=== PATIENT | female | born 1970 | race Caucasian/White ===

== ENCOUNTER 2018-07-23 12:37 | Emergency (ER) | payer BC, OTHER ==
[2018-07-23] MEDS ORDERED: Sodium Chloride 0.9% 10 ML Syringe FLUSH PRN (12:47)
[2018-07-23] MEDS ORDERED: Sodium Chloride 0.9% 2.5 ML Syringe FLUSH PRN (12:47)
--- NOTE | 2018-07-23 13:00 | EDM.PDOC ---
ED HPI GENERAL MEDICAL PROBLEM - General Chief Complaint: Neuro Symptoms/Deficits Stated Complaint: WEAKNESS/POSS. STROKE Time Seen by Provider: 07/23/18 12:47 Source of Information: Reports: Patient History Limitations: Reports: No Limitations - History of Present Illness INITIAL COMMENTS - FREE TEXT/NARRATIVE: History of present illness: []Patient was brought back to the ED after a stroke old was called. Patient started having severe weakness at noon yesterday and fell with loss of consciousness for unknown amount of time. She was unable to get back up and had to crawl for help. Patient's had severe weakness that continues today. Patient states she hasn't been feeling well for over a week but has no specific symptoms she denies cough, headache or pain with urination. She came in for evaluation of a possible stroke. Patient states she has had multiple TIAs in the past that felt similar to this. She denies any fevers, chills, nausea, vomiting or diarrhea. The daughter who brought the patient into the ED took me aside and wanted it noted that she has a history of pancreatitis and is an alcoholic. Review of systems: As per history of present illness and below otherwise all systems reviewed and negative. Past medical history: As per history of present illness and as reviewed below otherwise noncontributory. Surgical history: As per history of present illness and as reviewed below otherwise noncontributory. Social history: No reported history of drug or alcohol abuse. Family history: As per history of present illness and as reviewed below otherwise noncontributory. Physical exam: General: Well developed, well nourished in NAD HEENT: Atraumatic, normocephalic, pupils reactive, negative for conjunctival pallor or scleral icterus, mucous membranes moist, throat clear, neck supple, no rigidity, nontender, trachea midline. Positive maxillary sinus tenderness bilaterally to palpation Lungs: Clear to auscultation, breath sounds equal bilaterally, chest nontender. Heart: S1S2, regular, negative for clicks, rubs, or JVD. Abdomen: NABS, Soft, nondistended, nontender. Negative for masses or hepatosplenomegaly. Negative for costovertebral tenderness. Pelvis: Stable nontender. Genitourinary: Deferred. Rectal: Deferred. Extremities: Atraumatic, negative for cords or calf pain. Neurovascular unremarkable. Neuro: Awake, alert, oriented. Cranial nerves II through XII unremarkable. Cerebellum unremarkable. Motor and sensory unremarkable throughout. Exam nonfocal. Skin:warm and dry Diagnostics: CT head negative, CBC, chemistry, troponin, TSH, alcohol, lipase, chest x-ray, UA Therapeutics: IV hydration, Levaquin IV ED Course: Consulted [facility] at 14:00 Dr. Cobb sets patient for admission, Impression: Urosepsis, positive troponin, generalized weakness Prescriptions: None Plan: Transfer to [facility] for further treatment evaluation. Definitive disposition and diagnosis as appropriate pending reevaluation and review of above. - Related Data Allergies Allergy/AdvReac Type Severity Reaction Status Date / Time Penicillins Allergy Rash Verified 07/23/18 14:42 Home Meds: Home Meds . [No Known Home Meds] 07/23/18 [History] ED ROS GENERAL - Review of Systems Review Of Systems: ROS reveals no pertinent complaints other than HPI. ED EXAM, NEURO - Physical Exam Exam: See Below (See history of present illness) Course - Vital Signs Last Recorded V/S: Last Vital Signs Temp 98.6 F 07/23/18 13:15 Pulse 86 07/23/18 14:13 Resp 18 07/23/18 14:13 BP 90/56 L 07/23/18 14:13 Pulse Ox 100 07/23/18 13:15 - Orders/Labs/Meds Orders: Active Orders 24 hr Category Date Time Status Assess Neurological Status [RC] ASDIRECTED Care 07/23/18 12:47 Active Bedrest [RC] ASDIRECTED Care 07/23/18 12:47 Active Cardiac Monitoring [RC] . DIRECTED Care 07/23/18 12:47 Active EKG Documentation Completion [RC] STAT Care 07/23/18 12:47 Active Height and Weight [RC] UPON Care 07/23/18 12:47 Active Initiate Acute Stroke Protocol [RC] STAT Care 07/23/18 12:47 Active NIH Stroke Scale [RC] ASDIRECTED Care 07/23/18 12:47 Active Nursing Bedside Swallow Screen [RC] ASDIRECTED Care 07/23/18 12:47 Active Oxygen Therapy [RC] ASDIRECTED Care 07/23/18 12:47 Active Stroke Education, General [RC] Click to Edit Care 07/23/18 12:47 Active Vital Signs [RC] Q15M Care 07/23/18 12:47 Active Head wo Cont [CT] Stat Exams 07/23/18 12:47 Taken CULTURE BLOOD [BC] Stat Lab 07/23/18 13:52 Received CULTURE BLOOD [BC] Stat Lab 07/23/18 14:06 Received CULTURE URINE [RM] Routine Lab 07/23/18 14:18 Received Levofloxacin/Dextrose 5%-Water [Levaquin in D5W 500 MG/ Med 07/23/18 14:29 Active 100 ML] 500 mg Premix Bag 1 bag IV ONETIME Sodium Chloride 0.9% [Saline Flush] Med 07/23/18 12:47 Active 10 ml FLUSH ASDIRECTED PRN Sodium Chloride 0.9% [Saline Flush] Med 07/23/18 12:47 Active 2.5 ml FLUSH ASDIRECTED PRN Blood Culture x2 Reflex Set [OM.PC] Stat Oth 07/23/18 13:43 Ordered Peripheral IV Insertion Adult [OM.PC] Stat Oth 07/23/18 12:47 Ordered Peripheral IV Insertion Adult [OM.PC] Stat Oth 07/23/18 12:47 Ordered Medication Orders Levofloxacin/Dextrose 500 mg/ (Premix) 100 mls @ 100 mls/hr IV ONETIME ONE Stop: 07/23/18 15:28 Last Admin: 07/23/18 14:59 Dose: 100 mls/hr Sodium Chloride (Saline Flush) 10 ml FLUSH ASDIRECTED PRN PRN Reason: Keep Vein Open Last Admin: 07/23/18 13:06 Dose: 10 ml Sodium Chloride (Saline Flush) 2.5 ml FLUSH ASDIRECTED PRN PRN Reason: Keep Vein Open Last Admin: 07/23/18 13:06 Dose: 2.5 ml Labs: Laboratory Tests 07/23/18 07/23/18 07/23/18 Range/Units 13:05 13:05 13:05 WBC 29.55 H (4.0-11.0) K/uL RBC 3.93 L (4.30-5.90) M/uL Hgb 12.5 (12.0-16.0) g/dL Hct 35.6 L (36.0-46.0) % MCV 90.6 (80.0-98.0) fL MCH 31.8 (27.0-32.0) pg MCHC 35.1 (31.0-37.0) g/dL RDW Std Deviation 56.7 (28.0-62.0) fl RDW Coeff of Dez 17 H (11.0-15.0) % Plt Count 69 L (150-400) K/uL MPV 11.40 (7.40-12.00) fL Add Manual Diff YES Neutrophils % (Manual) 71 (48.0-80.0) % Band Neutrophils % 23 % Lymphocytes % (Manual) 4 L (16.0-40.0) % Monocytes % (Manual) 1 (0.0-15.0) % Metamyelocytes % 1 % Nucleated RBC % 0.0 /100WBC Absolute Seg Neuts 21.0 H (1.4-5.7) Band Neutrophils # 6.8 Lymphocytes # (Manual) 1.2 (0.6-2.4) Monocytes # (Manual) 0.3 (0.0-0.8) Absolute Metamyelocyte 0.3 Nucleated RBCs # 0 K/uL INR 1.25 APTT 38.2 H (18.6-31.3) SEC Lactate (0.20-2.00) mmol/L Sodium 135 L (136-145) mmol/L Potassium 3.5 (3.5-5.1) mmol/L Chloride 104 (98-107) mmol/L Carbon Dioxide 22.6 (21.0-32.0) mmol/L BUN 19 H (7.0-18.0) mg/dL Creatinine 1.1 H (0.6-1.0) mg/dL Est Cr Clr Drug Dosing TNP Estimated GFR (MDRD) 53.2 ml/min Glucose 106 (74-106) mg/dL Calcium 8.1 L (8.5-10.1) mg/dL Total Bilirubin 0.5 (0.2-1.0) mg/dL AST 83 H (15-37) IU/L ALT 49 (14-63) IU/L Alkaline Phosphatase 82 (46-116) U/L Troponin I 0.136 H* (0.000-0.056) ng/mL Total Protein 5.4 L (6.4-8.2) g/dL Albumin 1.8 L (3.4-5.0) g/dL Globulin 3.6 (2.6-4.0) g/dL Albumin/Globulin Ratio 0.5 L (0.9-1.6) Lipase (73-393) U/L TSH 3rd Generation 0.51 (0.36-3.74) uIU/mL Urine Color Urine Appearance Urine pH (5.0-8.0) Ur Specific [place] (1.001-1.035) Urine Protein (NEGATIVE) mg/dL Urine Glucose (UA) (NEGATIVE) mg/dL Urine Ketones (NEGATIVE) mg/dL Urine Occult Blood (NEGATIVE) Urine Nitrite (NEGATIVE) Urine Bilirubin (NEGATIVE) Urine Urobilinogen (<2.0) EU/dL Ur Leukocyte Esterase (NEGATIVE) Urine RBC (0-2/HPF) Urine WBC (0-5/HPF) Ur Epithelial Cells (NONE-FEW) Urine Bacteria (NEGATIVE) Ethyl Alcohol mg/dL 07/23/18 07/23/18 07/23/18 Range/Units 13:05 14:06 14:18 WBC (4.0-11.0) K/uL RBC (4.30-5.90) M/uL Hgb (12.0-16.0) g/dL Hct (36.0-46.0) % MCV (80.0-98.0) fL MCH (27.0-32.0) pg MCHC (31.0-37.0) g/dL RDW Std Deviation (28.0-62.0) fl RDW Coeff of Dez (11.0-15.0) % Plt Count (150-400) K/uL MPV (7.40-12.00) fL Add Manual Diff Neutrophils % (Manual) (48.0-80.0) % Band Neutrophils % % Lymphocytes % (Manual) (16.0-40.0) % Monocytes % (Manual) (0.0-15.0) % Metamyelocytes % % Nucleated RBC % /100WBC Absolute Seg Neuts (1.4-5.7) Band Neutrophils # Lymphocytes # (Manual) (0.6-2.4) Monocytes # (Manual) (0.0-0.8) Absolute Metamyelocyte Nucleated RBCs # K/uL INR APTT (18.6-31.3) SEC Lactate 1.9 (0.20-2.00) mmol/L Sodium (136-145) mmol/L Potassium (3.5-5.1) mmol/L Chloride (98-107) mmol/L Carbon Dioxide (21.0-32.0) mmol/L BUN (7.0-18.0) mg/dL Creatinine (0.6-1.0) mg/dL Est Cr Clr Drug Dosing Estimated GFR (MDRD) ml/min Glucose (74-106) mg/dL Calcium (8.5-10.1) mg/dL Total Bilirubin (0.2-1.0) mg/dL AST (15-37) IU/L ALT (14-63) IU/L Alkaline Phosphatase (46-116) U/L Troponin I (0.000-0.056) ng/mL Total Protein (6.4-8.2) g/dL Albumin (3.4-5.0) g/dL Globulin (2.6-4.0) g/dL Albumin/Globulin Ratio (0.9-1.6) Lipase 72 L (73-393) U/L TSH 3rd Generation (0.36-3.74) uIU/mL Urine Color YELLOW Urine Appearance CLOUDY Urine pH 6.0 (5.0-8.0) Ur Specific [place] 1.020 (1.001-1.035) Urine Protein NEGATIVE (NEGATIVE) mg/dL Urine Glucose (UA) NEGATIVE (NEGATIVE) mg/dL Urine Ketones NEGATIVE (NEGATIVE) mg/dL Urine Occult Blood SMALL H (NEGATIVE) Urine Nitrite POSITIVE H (NEGATIVE) Urine Bilirubin NEGATIVE (NEGATIVE) Urine Urobilinogen 1.0 (<2.0) EU/dL Ur Leukocyte Esterase MODERATE H (NEGATIVE) Urine RBC 1-3 (0-2/HPF) Urine WBC 40-50 (0-5/HPF) Ur Epithelial Cells MODERATE (NONE-FEW) Urine Bacteria 3+ H (NEGATIVE) Ethyl Alcohol < 3.0 mg/dL Meds: Medications Generic Name Dose Route Start Last Admin Trade Name Freq PRN Reason Stop Dose Admin Levofloxacin/Dextrose 500 mg/ 100 mls @ 100 mls/hr 07/23/18 14:29 07/23/18 14 :59 Premix IV 07/23/18 15:28 100 mls/hr ONETIME ONE Administration Sodium Chloride 10 ml 07/23/18 12:47 07/23/18 13:06 Saline Flush FLUSH 10 ml ASDIRECTED PRN Administration Keep Vein Open Sodium Chloride 2.5 ml 07/23/18 12:47 07/23/18 13:06 Saline Flush FLUSH 2.5 ml ASDIRECTED PRN Administration Keep Vein Open Discontinued Medications Generic Name Dose Route Start Last Admin Trade Name Freq PRN Reason Stop Dose Admin Sodium Chloride 500 mls @ 999 mls/hr 07/23/18 13:23 07/23/18 13:28 Normal Saline IV 07/23/18 13:53 999 mls/hr .BOLUS ONE Administration Sodium Chloride 1,000 mls @ 999 mls/hr 07/23/18 13:44 07/23/18 14:15 Normal Saline IV 07/23/18 14:44 999 mls/hr .Bolus ONE Administration Departure - Departure Time of Disposition: 15:08 Disposition: DC/Tfer to Acute Hospital 02 Condition: Fair Clinical Impression: Elevated troponin, Thrombocytopenia, Generalized weakness Leukocytosis Qualifiers: Leukocytosis type: unspecified Qualified Code(s): D72.829 - Elevated white blood cell count, unspecified - Discharge Information *PRESCRIPTION DRUG MONITORING PROGRAM REVIEWED*: No *COPY OF PRESCRIPTION DRUG MONITORING REPORT IN PATIENT LUNA: No Referrals: PCP,Not In Area [Primary Care Provider] - Forms: ED Department Discharge - My Orders Last 24 Hours: My Active Orders 07/23/18 12:47 Assess Neurological Status [RC] ASDIRECTED Bedrest [RC] ASDIRECTED Cardiac Monitoring [RC] . DIRECTED EKG Documentation Completion [RC] STAT Height and Weight [RC] UPON Initiate Acute Stroke Protocol [RC] STAT NIH Stroke Scale [RC] ASDIRECTED Nursing Bedside Swallow Screen [RC] ASDIRECTED Oxygen Therapy [RC] ASDIRECTED Stroke Education, General [RC] Click to Edit Vital Signs [RC] Q15M Head wo Cont [CT] Stat Sodium Chloride 0.9% [Saline Flush] 10 ml FLUSH ASDIRECTED PRN Sodium Chloride 0.9% [Saline Flush] 2.5 ml FLUSH ASDIRECTED PRN Peripheral IV Insertion Adult [OM.PC] Stat Peripheral IV Insertion Adult [OM.PC] Stat 07/23/18 13:43 Blood Culture x2 Reflex Set [OM.PC] Stat 07/23/18 13:52 CULTURE BLOOD [BC] Stat 07/23/18 14:06 CULTURE BLOOD [BC] Stat 07/23/18 14:18 CULTURE URINE [RM] Routine 07/23/18 14:29 Levofloxacin/Dextrose 5%-Water [Levaquin in D5W 500 MG/100 ML] 500 mg Premix Bag 1 bag IV ONETIME - Assessment/Plan Last 24 Hours: My Active Orders 07/23/18 12:47 Assess Neurological Status [RC] ASDIRECTED Bedrest [RC] ASDIRECTED Cardiac Monitoring [RC] . DIRECTED EKG Documentation Completion [RC] STAT Height and Weight [RC] UPON Initiate Acute Stroke Protocol [RC] STAT NIH Stroke Scale [RC] ASDIRECTED Nursing Bedside Swallow Screen [RC] ASDIRECTED Oxygen Therapy [RC] ASDIRECTED Stroke Education, General [RC] Click to Edit Vital Signs [RC] Q15M Head wo Cont [CT] Stat Sodium Chloride 0.9% [Saline Flush] 10 ml FLUSH ASDIRECTED PRN Sodium Chloride 0.9% [Saline Flush] 2.5 ml FLUSH ASDIRECTED PRN Peripheral IV Insertion Adult [OM.PC] Stat Peripheral IV Insertion Adult [OM.PC] Stat 07/23/18 13:43 Blood Culture x2 Reflex Set [OM.PC] Stat 07/23/18 13:52 CULTURE BLOOD [BC] Stat 07/23/18 14:06 CULTURE BLOOD [BC] Stat 07/23/18 14:18 CULTURE URINE [RM] Routine 07/23/18 14:29 Levofloxacin/Dextrose 5%-Water [Levaquin in D5W 500 MG/100 ML] 500 mg Premix Bag 1 bag IV ONETIME
[2018-07-23] MEDS ORDERED: Sodium Chloride 0.9% 500 ML IV ONE (13:23)
[2018-07-23] MEDS ORDERED: Sodium Chloride 0.9% 1,000 ML IV ONE (13:44)
[2018-07-23 13:45] LABS: CHLORIDE,CL 104 mmol/L (98-107); SODIUM,NA 135 mmol/L (136-145)
[2018-07-23] MEDS ORDERED: Levofloxacin/Dextrose 5%-Water 500 MG in Premix Bag 1 BAG IV ONE (14:29)
--- NOTE | 2018-07-23 14:36 | CR ---
EXAMINATION: Portable chest radiograph. HISTORY: Shortness of breath. FINDINGS: The trachea is midline. The cardiomediastinal silhouette is within normal limits. No pulmonary infiltrates, effusions or pneumothorax. Osseous structures appear unremarkable. IMPRESSION: No acute cardiopulmonary process.
--- NOTE | 2018-07-24 10:53 | CT ---
EXAM DATE: 07/23/18 PATIENT'S AGE: 48 Patient: ZOHRA LOYD Facility: [place], [place] Site . Site : [id number] Study: CT Head STROKE PROTOCOL wo cont [id number] 12:56:31 PM Ordering Physician: Juwan Enriquez Final Report: INDICATION: Weakness, history of TIA TECHNIQUE: CT head without contrast. COMPARISON: None FINDINGS: CSF spaces: Within normal limits for age. Brain parenchyma: The burciaga-white differentiation is normal. No sign of mass, hemorrhage, or midline shift. Encephalomalacia within the medial left occipital lobe from remote insult. Skull base and calvarium: The visualized paranasal sinuses and mastoid air cells demonstrate no acute or significant findings. The visualized orbits are grossly unremarkable. No skull fractures. IMPRESSION: No acute intracranial abnormality. Please note that all CT scans at this facility use dose modulation, iterative reconstruction, and/or weight-based dosing when appropriate to reduce radiation dose to as low as reasonably achievable. Dictated by Zohra Gordillo MD @ Jul 23 2018 1:03PM (Electronic Signature) Report Signed by Proxy. [facility] HOSPITALWandy
== END 2018-07-23 15:21 ==
LOC: MW.ED 12:37
DX: R53.1 Weakness (principal); D69.6 Thrombocytopenia, unspecified; D72.829 Elevated white blood cell count, unspecified; F17.210 Nicotine dependence, cigarettes, uncomplicated; R79.89 Other specified abnormal findings of blood chemistry; Z90.89 Acquired absence of other organs; Z90.49 Acquired absence of other specified parts of digestive tract; Z98.84 Bariatric surgery status
CPT/HCPCS: 70450; 71045; 80053; 81001; 83605; 83690; 84443; 84484; 85025; 85610; 85730; 87040; 87086; 87088; 87186; 93005; 96361; 96365; 99285; G0480; J1956; J7040

== ENCOUNTER 2019-07-18 10:28 | Inpatient (IN) | payer BC ==
[2019-07-18] MEDS ORDERED: LORazepam 2 MG/ML SDV IVPUSH ONE (11:32)
--- NOTE | 2019-07-18 12:31 | CR ---
Chest: Portable view of the chest was obtained. Comparison: Prior chest x-ray of 07/23/18. Heart size is normal. Tortuous thoracic aorta is seen. Lungs are clear with no acute parenchymal change. Bony structures are grossly intact. Chronic pleural thickening is noted within the lateral left costophrenic angle. Impression: 1. Nothing acute is seen on portable chest x-ray. Diagnostic code #2 This report was dictated in [place] Standard Time
[2019-07-18 12:32] LABS: BLOOD UREA NITROGEN,BUN 7 mg/dL (7.0-18.0); CARBON DIOXIDE,CO2 28.1 mmol/L (21.0-32.0); CHLORIDE,CL 107 mmol/L (98-107); GLUCOSE RANDOM 84 mg/dL (74-106); POTASSIUM,K 3.8 mmol/L (3.5-5.1); SODIUM,NA 140 mmol/L (136-145)
--- NOTE | 2019-07-18 12:38 | CT ---
Head CT Technique: Multiple axial sections through the brain were obtained. Intravenous contrast was not utilized. Comparison: Prior head CT study of 07/23/18 is available. Findings: Ventricles along with basal cisterns and sulci over the convexities are mildly prominent. Low density encephalomalacia is noted within the medial left occipital lobe which is stable from previous exam. No other abnormal parenchymal densities are seen. No evidence of intracranial hemorrhage. No midline shift or mass effect is seen. Bone window settings were reviewed which shows no acute calvarial abnormality. Mastoid sinuses show nothing acute. Visualized paranasal sinuses also show nothing acute. Impression: 1. Findings as noted above. 2. Nothing acute is appreciated on noncontrast head CT study. Diagnostic code #2 This report was dictated in [place] Standard Time
--- NOTE | 2019-07-18 12:59 | EDM.PDOC ---
ED HPI GENERAL MEDICAL PROBLEM - General Chief Complaint: Behavioral/Psych Stated Complaint: DELUSIONAL Time Seen by Provider: 07/18/19 10:57 - History of Present Illness INITIAL COMMENTS - FREE TEXT/NARRATIVE: HPI 49 female with a history of EtOH abuse who is on Eliquis presents for evaluation of 4+ days of hallucinations, confusion, and altered mentation, patient fell at some point in the recent history apparently psych in the right side of her head, has also been absent from alcohol for at least 4 days. Reason for abstinence unclear of the history. No apparent recent illnesses. Patient was reportedly had similar but much minor symptoms in the past. Patients adult daughter provides the majority of the history. M/S/F/SocHx notable for: please see HPI; remainder reviewed with patient and in chart. ROS: Negative constitutional, eye, cardiovascular, pulmonary, GI, , MSK, skin , neurologic, psychiatric, endocrine unless noted in the HPI. Exam Gen: Pleasant, non-toxic appearing, resting comfortably. HEENT: NC, yellowing and ecchymosis on the lateral aspect of the right orbital rim, otherwise atraumatic, PEERL, EOMI. Resp: Clear to auscultation bilaterally, normal work of breathing, no accessory muscle usage. Card: Regular rate and rhythm with no murmurs, rubs, or gallops, extremities warm and well perfused. GI: Non-tender to palpation throughout all quadrants, no focal tenderness at McBurney's point, negative Christianson's sign, non-distended, no rebound or guarding. : No suprapubic tenderness to palpation. MSK: No visible deformities, strength and tone without visually appreciable deficit. Skin: Normal color with no visible lesions. Neuro: alert and oriented 3, however mildly confused, no facial asymmetry, no gaze preference, no slurring of speech. CN II-III: pupils equal and reactive (3- >2mm bilaterally); III, IV, : EOMI, V1-V3: sensation to touch bilaterally intact; VII: no facial asymmetry (frown / smile); VIII: no nystagmus; X: phonation intact, uvula midline; XI: trapezius 5/5 bilaterally, XII: tongue midline. Cerebellar: no pronator drift, [id number] testing without dysmetria bilaterally, heel to archuleta without dysmetria bilaterally. Psych: mildly confused. Labs / Imaging: WBC 4.8, HB 8.9, sodium 140, potassium 3.8, magnesium 1.8, AST 53, ALT 37, alkaline phosphatase 125, TSH 0.74. Salicylates 4.1, EtOH <3.0, acetaminophen pending. CXR: no acute cardiopulmonary abnormality. CT head: no acute abnormalities. MDM Previous chart, nursing note, labs, imaging, and vitals reviewed. A: 49 female with a history of EtOH abuse who is on Eliquis presents for evaluation of 4+ days of hallucinations, confusion, and altered mentation, patient fell at some point in the recent history apparently psych in the right side of her head, has also been absent from alcohol for at least 4 days. DDx: SDH, SAH, hyponatremia, hypothyroidism, hyperthyroidism, methamphetamine abuse, alcohol hallucinations, EtOH withdraw/DTs, paraneoplastic syndrome. Evaluation: EtOH withdraw - concern exists for alcohol withdraw as a cause of the patients altered mentation, trial of Ativan given. Labs without evidence of hyponatremic, hypothyroidism, significant anemia, hypomagnesemia or other acute abnormalities. UDS and UA remain pending, however there is no clear evidence of active infectious process or clinically appreciable toxidrome. Chest x-ray and CT head unremarkable. ED Course: 12:16 PM - 1 mg Ativan given. 12:57 - repeat evaluation with patient resting comfortably, denies hallucinations, however there is significant concern for recurrent EtOH withdraw (or recurrence of a yet to be diagnosed process), concern for poor social factors, unable to identify safe discharge plan with prompt follow-up. Disposition: Patient admitted for further care. Impression: hallucinations, ?EtOH withdraw. Generalized Pain Score (Numeric/FACES): 9 - Related Data Allergies Allergy/AdvReac Type Severity Reaction Status Date / Time metoclopramide [From Reglan] Allergy Hallucinati Verified 07/18/19 10:52 ons Penicillins Allergy Rash Verified 07/18/19 10:51 Home Meds: Home Meds . [No Known Home Meds] 07/23/18 [History] Past Medical History Gastrointestinal History: Reports: Pancreatitis Neurological History: Reports: MS, TIA - Infectious Disease History Infectious Disease History: Reports: Chicken Pox - Past Surgical History GI Surgical History: Reports: Appendectomy, Cholecystectomy, Other (See Below) Other GI Surgeries/Procedures: gastric bypass Social & Family History - Family History Family Medical History: Noncontributory - Tobacco Use Smoking Status *Q: Current Every Day Smoker Years of Tobacco use: 35 Packs/Tins Daily: 0.7 - Caffeine Use Caffeine Use: Reports: Coffee, Soda - Recreational Drug Use Recreational Drug Use: No ED ROS GENERAL - Review of Systems Review Of Systems: See Below ED EXAM, GENERAL - Physical Exam Exam: See Below Course - Vital Signs Last Recorded V/S: Last Vital Signs Temp 36.4 C 07/18/19 11:26 Pulse 67 07/18/19 12:18 Resp 20 07/18/19 12:18 BP 113/74 07/18/19 12:18 Pulse Ox 98 07/18/19 12:18 - Orders/Labs/Meds Orders: Active Orders 24 hr Category Date Time Status ACETAMINOPHEN [CHEM] Stat Lab 07/18/19 11:52 Received DRUG SCREEN, URINE [URCHEM] Stat Lab 07/18/19 11:31 Ordered UA W/ROMELIA RFLX IF INDICATED [URIN] Stat Lab 07/18/19 11:31 Ordered Labs: Laboratory Tests 07/18/19 07/18/19 Range/Units 11:52 11:52 WBC 4.81 (4.0-11.0) K/uL RBC 3.05 L (4.30-5.90) M/uL Hgb 8.9 L (12.0-16.0) g/dL Hct 27.6 L (36.0-46.0) % MCV 90.5 (80.0-98.0) fL MCH 29.2 (27.0-32.0) pg MCHC 32.2 (31.0-37.0) g/dL RDW Std Deviation 63.2 H (28.0-62.0) fl RDW Coeff of Dez 20 H (11.0-15.0) % Plt Count 118 L (150-400) K/uL MPV 10.00 (7.40-12.00) fL Neut % (Auto) 51.2 (48.0-80.0) % Lymph % (Auto) 37.2 (16.0-40.0) % [place] % (Auto) 10.4 (0.0-15.0) % Eos % (Auto) 1.0 (0.0-7.0) % Baso % (Auto) 0.2 (0.0-1.5) % Neut # (Auto) 2.5 (1.4-5.7) K/uL Lymph # (Auto) 1.8 (0.6-2.4) K/uL [place] # (Auto) 0.5 (0.0-0.8) K/uL Eos # (Auto) 0.1 (0.0-0.7) K/uL Baso # (Auto) 0.0 (0.0-0.1) K/uL Nucleated RBC % 0.0 /100WBC Nucleated RBCs # 0 K/uL Sodium 140 (136-145) mmol/L Potassium 3.8 (3.5-5.1) mmol/L Chloride 107 (98-107) mmol/L Carbon Dioxide 28.1 (21.0-32.0) mmol/L BUN 7 (7.0-18.0) mg/dL Creatinine 1.2 H (0.6-1.0) mg/dL Est Cr Clr Drug Dosing 47.21 mL/min Estimated GFR (MDRD) 47.9 ml/min Glucose 84 (74-106) mg/dL Calcium 8.0 L (8.5-10.1) mg/dL Magnesium 1.8 (1.8-2.4) mg/dL Total Bilirubin 0.2 (0.2-1.0) mg/dL AST 53 H (15-37) IU/L ALT 37 (14-63) IU/L Alkaline Phosphatase 125 H (46-116) U/L Total Protein 6.3 L (6.4-8.2) g/dL Albumin 2.7 L (3.4-5.0) g/dL Globulin 3.6 (2.6-4.0) g/dL Albumin/Globulin Ratio 0.8 L (0.9-1.6) TSH 3rd Generation 0.74 (0.36-3.74) uIU/mL Salicylates 4.1 (0-20) mg/dL Ethyl Alcohol < 3.0 mg/dL Meds: Medications Discontinued Medications Generic Name Dose Route Start Last Admin Trade Name Freq PRN Reason Stop Dose Admin Lorazepam 1 mg 07/18/19 11:32 07/18/19 12:16 Ativan IVPUSH 07/18/19 11:33 1 mg ONETIME ONE Administration Departure - Departure Time of Disposition: 12:59 Disposition: Admitted As Inpatient 67 Clinical Impression: Hallucinations - Discharge Information Referrals: Natacha Headley NP [Primary Care Provider] - Sepsis Event Note - Evaluation Sepsis Screening Result: No Definite Risk - Focused Exam Vital Signs: Vital Signs Temp Pulse Resp BP Pulse Ox 07/18/19 12:18 67 20 113/74 98 07/18/19 11:26 36.4 C 95 127/93 H 94 L 07/18/19 10:44 35.9 C 71 18 118/79 100 Date Exam was Performed: 07/18/19 Time Exam was Performed: 12:59 - My Orders Last 24 Hours: My Active Orders 07/18/19 11:31 DRUG SCREEN, URINE [URCHEM] Stat UA W/ROMELIA RFLX IF INDICATED [URIN] Stat 07/18/19 11:52 ACETAMINOPHEN [CHEM] Stat - Assessment/Plan Last 24 Hours: My Active Orders 07/18/19 11:31 DRUG SCREEN, URINE [URCHEM] Stat UA W/ROMELIA RFLX IF INDICATED [URIN] Stat 07/18/19 11:52 ACETAMINOPHEN [CHEM] Stat
--- NOTE | 2019-07-18 14:41 | PCM.HP.2 ---
H&P History of Present Illness - General Date of Service: 07/18/19 Admit Problem/Dx: Admission Diagnosis/Problem Admission Diagnosis/Problem Altered mental status Source of Information: Patient History Limitations: Reports: No Limitations - History of Present Illness Initial Comments - Free Text/Narative: This 49 year old female with complex medical history of gastric bypass, CVA with residual peripheral vision loss, anticoagulation and alcohol abuse with chronic pancreatitis presented to the ED with complaints of hallucinations and delirium. Her daughter reports her last drink was approximately 4 days ago and the hallucinations started the evening before she quit drinking and have progressively worsened. She reports also being out of her Ambien, PCP would not refill it until today. These hallucinations started with brief moments of her reaching for things that weren't there to aggression with her last night because she saw a lady sitting on the couch by him. She denies fevers, chills, chest pain or SOB. She reports chronic abdominal pain. She reports diarrhea which is near baseline with IBS. No dysuria or frequency or urgency. She reports smoking 1/2 ppd cigarettes, drink 12+ beers daily, and no recreational drug use. In the ED no leukocytosis noted, hgb 8.9, which is near baseline, platelets 118, 000, AST 53, ALT 37 and alk phos 125, TSH 0.74. ETOH less than 3.0. She head CT obtained which shows of CVA with encephalomalacia, no acute findings. CXR negative. She was given 1 mg Ativan in the ED with improvement. She was alert and oriented in the ED history was supplemented by daughter at bedside as well, though Zohra was very alert and oriented for conversation. PCP, Natacha Barrow Generalized Pain Score (Numeric/FACES): 9 - Related Data Allergies/Adverse Reactions: Allergies Allergy/AdvReac Type Severity Reaction Status Date / Time metoclopramide [From Reglan] Allergy Hallucinati Verified 07/18/19 10:52 ons Penicillins Allergy Rash Verified 07/18/19 10:51 Home Medications: Home Meds . [No Known Home Meds] 07/23/18 [History] Past Medical History Cardiovascular History: Reports: Blood Clots/VTE/DVT. Denies: Afib, [place] Respiratory History: Reports: None. Denies: Asthma, COPD Gastrointestinal History: Reports: Irritable Bowel Syndrome, Pancreatitis ( chronic) Musculoskeletal History: Reports: Fibromyalgia Neurological History: Reports: CVA, MS, TIA Psychiatric History: Reports: Addiction, Anxiety, Depression Endocrine/Metabolic History: Reports: None. Denies: Diabetes, Type II - Infectious Disease History Infectious Disease History: Reports: Chicken Pox - Past Surgical History Head Surgeries/Procedures: Reports: None Cardiovascular Surgical History: Reports: None GI Surgical History: Reports: Appendectomy, Cholecystectomy, Other (See Below) Other GI Surgeries/Procedures: gastric bypass Social & Family History - Family History Family Medical History: Noncontributory - Tobacco Use Smoking Status *Q: Current Every Day Smoker Years of Tobacco use: 35 Packs/Tins Daily: 0.7 - Caffeine Use Caffeine Use: Reports: Coffee, Soda - Alcohol Use Alcohol Use History: Yes Days Per Week of Alcohol Use: 7 Number of Drinks Per Day: 12 Total Drinks Per Week: 84 Alcohol Use Frequency: Daily - Recreational Drug Use Recreational Drug Use: No - Living Situation & Occupation Living situation: Reports: Occupation: Disabled H&P Review of Systems - Review of Systems: Review Of Systems: See Below General: Reports: No Symptoms. Denies: Fever, Chills, Malaise, Weakness HEENT: Reports: No Symptoms. Denies: Headaches, Sinus Congestion, Vertigo Pulmonary: Reports: No Symptoms. Denies: Shortness of Breath Cardiovascular: Reports: No Symptoms. Denies: Chest Pain Gastrointestinal: Reports: Abdominal Pain (chronic, no change), Diarrhea. Denies: Black Stool, Bloody Stool, Hematemesis, Nausea, Vomiting Genitourinary: Reports: No Symptoms. Denies: Dysuria, Frequency, Burning Psychiatric: Reports: Confusion, Agitation, Hallucinations, Hallucinations ( Auditory), Hallucinations (Visual). Denies: Suicidal Ideation Neurological: Denies: Headache, Tremors Hematologic/Lymphatic: Reports: No Symptoms Immunologic: Reports: No Symptoms Exam - Exam Exam: See Below - Vital Signs Vital Signs: Last Vital Signs Temp 97.5 F 07/18/19 11:26 Pulse 69 07/18/19 13:48 Resp 16 07/18/19 13:48 BP 117/71 07/18/19 13:48 Pulse Ox 99 07/18/19 13:48 Weight: 52.163 kg - Exam General: Alert, Oriented, Cooperative HEENT: Conjunctiva Clear, Mucosa Moist & [place], Pupils Equal Lungs: Clear to Auscultation, Normal Respiratory Effort Cardiovascular: Regular Rate, Regular Rhythm GI/Abdominal Exam: Normal Bowel Sounds, Soft, Tender (throughout, reports this is her normal) Back Exam: Normal Inspection, Full Range of Motion Extremities: Normal Inspection, Normal Range of Motion, Non-Tender, No Pedal Edema Neurological: Cranial Nerves Intact, Reflexes Equal Bilateral, Strength Equal Bilateral, Normal Speech Neuro Extensive - Mental Status: Alert, Oriented x3 Neuro Extensive - Motor, Sensory, Reflexes: CN II-XII Intact, Tremor (mild) Psychiatric: Alert, Normal Affect, Normal Mood, Withdrawal Symptoms. No: Hallucinations - Patient Data Lab Results Last 24 hrs: Laboratory Results - last 24 hr 07/18/19 07/18/19 07/18/19 Range/Units 11:52 11:52 11:52 WBC 4.81 (4.0-11.0) K/uL RBC 3.05 L (4.30-5.90) M/uL Hgb 8.9 L (12.0-16.0) g/dL Hct 27.6 L (36.0-46.0) % MCV 90.5 (80.0-98.0) fL MCH 29.2 (27.0-32.0) pg MCHC 32.2 (31.0-37.0) g/dL RDW Std Deviation 63.2 H (28.0-62.0) fl RDW Coeff of Dez 20 H (11.0-15.0) % Plt Count 118 L (150-400) K/uL MPV 10.00 (7.40-12.00) fL Neut % (Auto) 51.2 (48.0-80.0) % Lymph % (Auto) 37.2 (16.0-40.0) % [place] % (Auto) 10.4 (0.0-15.0) % Eos % (Auto) 1.0 (0.0-7.0) % Baso % (Auto) 0.2 (0.0-1.5) % Neut # (Auto) 2.5 (1.4-5.7) K/uL Lymph # (Auto) 1.8 (0.6-2.4) K/uL [place] # (Auto) 0.5 (0.0-0.8) K/uL Eos # (Auto) 0.1 (0.0-0.7) K/uL Baso # (Auto) 0.0 (0.0-0.1) K/uL Nucleated RBC % 0.0 /100WBC Nucleated RBCs # 0 K/uL Sodium 140 (136-145) mmol/L Potassium 3.8 (3.5-5.1) mmol/L Chloride 107 (98-107) mmol/L Carbon Dioxide 28.1 (21.0-32.0) mmol/L BUN 7 (7.0-18.0) mg/dL Creatinine 1.2 H (0.6-1.0) mg/dL Est Cr Clr Drug Dosing 47.21 mL/min Estimated GFR (MDRD) 47.9 ml/min Glucose 84 (74-106) mg/dL Calcium 8.0 L (8.5-10.1) mg/dL Magnesium 1.8 (1.8-2.4) mg/dL Total Bilirubin 0.2 (0.2-1.0) mg/dL AST 53 H (15-37) IU/L ALT 37 (14-63) IU/L Alkaline Phosphatase 125 H (46-116) U/L Total Protein 6.3 L (6.4-8.2) g/dL Albumin 2.7 L (3.4-5.0) g/dL Globulin 3.6 (2.6-4.0) g/dL Albumin/Globulin Ratio 0.8 L (0.9-1.6) TSH 3rd Generation 0.74 (0.36-3.74) uIU/mL Salicylates 4.1 (0-20) mg/dL Acetaminophen <2.0 ug/mL Ethyl Alcohol < 3.0 mg/dL Result Diagrams: 07/18/19 11:52 07/18/19 11:52 Sepsis Event Note - Evaluation Sepsis Screening Result: No Definite Risk - Focused Exam Vital Signs: Vital Signs Temp Pulse Resp BP Pulse Ox 07/18/19 13:48 69 16 117/71 99 07/18/19 12:18 67 20 113/74 98 07/18/19 11:26 97.5 F 95 127/93 H 94 L 07/18/19 10:44 96.7 F 71 18 118/79 100 Date Exam was Performed: 07/18/19 Time Exam was Performed: 15:11 - Problem List (1) Hallucinations SNOMED Code(s): 9317007 ICD Code: R44.3 - HALLUCINATIONS, UNSPECIFIED Status: Acute Current Visit : Yes (2) Delirium SNOMED Code(s): 0755126 ICD Code: R41.0 - DISORIENTATION, UNSPECIFIED Status: Acute Current Visit : Yes (3) Alcohol abuse SNOMED Code(s): 92479403 ICD Code: F10.10 - ALCOHOL ABUSE, UNCOMPLICATED Status: Chronic Current Visit: Yes (4) History of CVA (cerebrovascular accident) SNOMED Code(s): 292342855 ICD Code: Z86.73 - PRSNL HX OF TIA (TIA), AND CEREB INFRC W/O RESID DEFICITS Status: Chronic Current Visit: Yes (5) Anticoagulant long-term use SNOMED Code(s): 447611586 ICD Code: Z79.01 - UNDER CUTTER (CURRENT) USE OF ANTICOAGULANTS Status: Chronic Current Visit: Yes (6) Depression SNOMED Code(s): 50513217 ICD Code: F32.9 - MAJOR DEPRESSIVE DISORDER, SINGLE EPISODE, UNSPECIFIED Status: Chronic Current Visit: Yes (7) Anxiety SNOMED Code(s): 47019004 ICD Code: F41.9 - ANXIETY DISORDER, UNSPECIFIED Status: Chronic Current Visit: Yes (8) Tobacco abuse SNOMED Code(s): 403924259 ICD Code: Z72.0 - TOBACCO USE Status: Chronic Current Visit: Yes (9) Multiple sclerosis SNOMED Code(s): 08497386 ICD Code: G35 - MULTIPLE SCLEROSIS Status: Chronic Current Visit: Yes (10) Fibromyalgia SNOMED Code(s): 870615592 ICD Code: M79.7 - FIBROMYALGIA Status: Chronic Current Visit: Yes Problem List Initiated/Reviewed/Updated: Yes Orders Last 24hrs: Active Orders 24 hr Category Date Time Status Patient Status [ADT] Stat ADT 07/18/19 13:02 Active DRUG SCREEN, URINE [URCHEM] Stat Lab 07/18/19 11:31 Ordered UA W/ROMELIA RFLX IF INDICATED [URIN] Stat Lab 07/18/19 11:31 Ordered Assessment/Plan Comment:: This 49 year old female admitted with hallucinations and delirium, consider Ambien withdrawal in combination with alcohol withdrawal. 1. Delirium/hallucinations: Ativan per CIWAA protocol. Consider Ambien withdrawal along with alcohol withdrawal, four days since last drink. But reports she has never withdrawn like this in the past. Ua and U tox negative. 2. Alcohol withdrawal: CIWAA protocol with Ativan. Thiamine and folic acid supplementation. Discussed interest in sobriety or help with this and she is currently not interested. 3. Insomnia: takes Ambien, has been out for over 5 days, could be cause of increased insomnia, agitation and delirium. Recommend discontinuation completely of Ambien and discuss with PCP alternatives. 4. Hx CVA: Continue Xarelto. Will add Protonix po. Discussed at length concern with alcohol use and blood thinner, as well as history of some sort of internal bleeding per daughter, 2-5 years ago. 5 MS/fibromyalgia: Takes Gabapentin, has been taking this appropriately. VTE prophylaxis: Xarelto Dispo: 2 days. - Mortality Measure Prognosis:: Good
[2019-07-18] MEDS ORDERED: Sodium Chloride 0.9% 2.5 ML Syringe FLUSH PRN (14:43)
[2019-07-18] MEDS ORDERED: Ondansetron 4 MG/2 ML SDV IVPUSH PRN (14:43)
[2019-07-18] MEDS: Nicotine 7 MG/24 Hr Patch TRDERM SCH (16:07)
[2019-07-18] MEDS: Acetaminophen 325 MG Tab PO PRN (16:08)
[2019-07-18] MEDS: Thiamine 100 MG Tab PO SCH (21:01)
[2019-07-18] MEDS: Folic Acid 1 MG Tab PO SCH (21:01)
[2019-07-19 06:44] LABS: BLOOD UREA NITROGEN,BUN 11 mg/dL (7.0-18.0); CARBON DIOXIDE,CO2 26.3 mmol/L (21.0-32.0); CHLORIDE,CL 109 mmol/L (98-107); GLUCOSE RANDOM 91 mg/dL (74-106); POTASSIUM,K 3.7 mmol/L (3.5-5.1); SODIUM,NA 141 mmol/L (136-145)
[2019-07-19] MEDS: Acetaminophen 325 MG Tab PO PRN (07:19)
[2019-07-19] MEDS: Citalopram 20 MG Tab PO SCH (09:41)
[2019-07-19] MEDS: Rivaroxaban 10 MG Tab PO SCH (09:41)
[2019-07-19] MEDS: Gabapentin 300 MG Cap PO SCH ×2 (09:42→20:25)
[2019-07-19] MEDS: Nicotine 7 MG/24 Hr Patch TRDERM SCH (09:42)
--- NOTE | 2019-07-19 11:58 | PCM.PN ---
- General Info Date of Service: 07/19/19 Admission Dx/Problem (Free Text): Admission Diagnosis/Problem Admission Diagnosis/Problem Altered mental status Subjective Update: Alert and oriented this morning, continues to see her dog in her room. She is requesting discharge home. Functional Status: Reports: Pain Controlled, Tolerating Diet, Ambulating, Urinating - Review of Systems General: Reports: No Symptoms HEENT: Reports: No Symptoms Pulmonary: Reports: No Symptoms. Denies: Shortness of Breath Cardiovascular: Reports: No Symptoms. Denies: Chest Pain Gastrointestinal: Reports: No Symptoms. Denies: Abdominal Pain, Nausea, Vomiting Genitourinary: Reports: No Symptoms Neurological: Reports: Tremors (mild) - Patient Data Vitals - Most Recent: Last Vital Signs Temp 97.6 F 07/19/19 07:20 Pulse 65 07/19/19 07:20 Resp 16 07/19/19 07:20 BP 108/65 07/19/19 07:20 Pulse Ox 97 07/19/19 07:20 Weight - Most Recent: 50.984 kg I&O - Last 24 Hours: Intake & Output 07/18/19 07/19/19 07/19/19 22:59 06:59 14:59 Intake Total 0 450 Output Total 0 350 Balance 0 100 Lab Results Last 24 Hours: Laboratory Results - last 24 hr 07/18/19 07/18/19 07/18/19 Range/Units 11:52 11:52 11:52 WBC 4.81 (4.0-11.0) K/uL RBC 3.05 L (4.30-5.90) M/uL Hgb 8.9 L (12.0-16.0) g/dL Hct 27.6 L (36.0-46.0) % MCV 90.5 (80.0-98.0) fL MCH 29.2 (27.0-32.0) pg MCHC 32.2 (31.0-37.0) g/dL RDW Std Deviation 63.2 H (28.0-62.0) fl RDW Coeff of Dez 20 H (11.0-15.0) % Plt Count 118 L (150-400) K/uL MPV 10.00 (7.40-12.00) fL Neut % (Auto) 51.2 (48.0-80.0) % Lymph % (Auto) 37.2 (16.0-40.0) % [place] % (Auto) 10.4 (0.0-15.0) % Eos % (Auto) 1.0 (0.0-7.0) % Baso % (Auto) 0.2 (0.0-1.5) % Neut # (Auto) 2.5 (1.4-5.7) K/uL Lymph # (Auto) 1.8 (0.6-2.4) K/uL [place] # (Auto) 0.5 (0.0-0.8) K/uL Eos # (Auto) 0.1 (0.0-0.7) K/uL Baso # (Auto) 0.0 (0.0-0.1) K/uL Nucleated RBC % 0.0 /100WBC Nucleated RBCs # 0 K/uL Sodium 140 (136-145) mmol/L Potassium 3.8 (3.5-5.1) mmol/L Chloride 107 (98-107) mmol/L Carbon Dioxide 28.1 (21.0-32.0) mmol/L BUN 7 (7.0-18.0) mg/dL Creatinine 1.2 H (0.6-1.0) mg/dL Est Cr Clr Drug Dosing 47.21 mL/min Estimated GFR (MDRD) 47.9 ml/min Glucose 84 (74-106) mg/dL Calcium 8.0 L (8.5-10.1) mg/dL Magnesium 1.8 (1.8-2.4) mg/dL Total Bilirubin 0.2 (0.2-1.0) mg/dL AST 53 H (15-37) IU/L ALT 37 (14-63) IU/L Alkaline Phosphatase 125 H (46-116) U/L Total Protein 6.3 L (6.4-8.2) g/dL Albumin 2.7 L (3.4-5.0) g/dL Globulin 3.6 (2.6-4.0) g/dL Albumin/Globulin Ratio 0.8 L (0.9-1.6) TSH 3rd Generation 0.74 (0.36-3.74) uIU/mL Urine Color Urine Appearance Urine pH (5.0-8.0) Ur Specific [place] (1.001-1.035) Urine Protein (NEGATIVE) mg/dL Urine Glucose (UA) (NEGATIVE) mg/dL Urine Ketones (NEGATIVE) mg/dL Urine Occult Blood (NEGATIVE) Urine Nitrite (NEGATIVE) Urine Bilirubin (NEGATIVE) Urine Urobilinogen (<2.0) EU/dL Ur Leukocyte Esterase (NEGATIVE) Salicylates 4.1 (0-20) mg/dL Urine Opiates Screen (NEGATIVE) Ur Oxycodone Screen (NEGATIVE) Urine Methadone Screen (NEGATIVE) Acetaminophen <2.0 ug/mL Ur Barbiturates Screen (NEGATIVE) Ur Phencyclidine Scrn (NEGATIVE) Ur Amphetamine Screen (NEGATIVE) U Methamphetamines Scrn (NEGATIVE) U Benzodiazepines Scrn (NEGATIVE) U Cocaine Metab Screen (NEGATIVE) U Marijuana (THC) Screen (NEGATIVE) Ethyl Alcohol < 3.0 mg/dL 07/18/19 07/18/19 07/19/19 Range/Units 14:40 14:40 06:23 WBC 4.91 (4.0-11.0) K/uL RBC 2.79 L (4.30-5.90) M/uL Hgb 8.1 L (12.0-16.0) g/dL Hct 25.5 L (36.0-46.0) % MCV 91.4 (80.0-98.0) fL MCH 29.0 (27.0-32.0) pg MCHC 31.8 (31.0-37.0) g/dL RDW Std Deviation 66.2 H (28.0-62.0) fl RDW Coeff of Dez 20 H (11.0-15.0) % Plt Count 110 L (150-400) K/uL MPV 9.80 (7.40-12.00) fL Neut % (Auto) 39.9 L (48.0-80.0) % Lymph % (Auto) 48.1 H (16.0-40.0) % [place] % (Auto) 10.0 (0.0-15.0) % Eos % (Auto) 1.8 (0.0-7.0) % Baso % (Auto) 0.2 (0.0-1.5) % Neut # (Auto) 2.0 (1.4-5.7) K/uL Lymph # (Auto) 2.4 (0.6-2.4) K/uL [place] # (Auto) 0.5 (0.0-0.8) K/uL Eos # (Auto) 0.1 (0.0-0.7) K/uL Baso # (Auto) 0.0 (0.0-0.1) K/uL Nucleated RBC % 0.0 /100WBC Nucleated RBCs # 0 K/uL Sodium (136-145) mmol/L Potassium (3.5-5.1) mmol/L Chloride (98-107) mmol/L Carbon Dioxide (21.0-32.0) mmol/L BUN (7.0-18.0) mg/dL Creatinine (0.6-1.0) mg/dL Est Cr Clr Drug Dosing mL/min Estimated GFR (MDRD) ml/min Glucose (74-106) mg/dL Calcium (8.5-10.1) mg/dL Magnesium (1.8-2.4) mg/dL Total Bilirubin (0.2-1.0) mg/dL AST (15-37) IU/L ALT (14-63) IU/L Alkaline Phosphatase (46-116) U/L Total Protein (6.4-8.2) g/dL Albumin (3.4-5.0) g/dL Globulin (2.6-4.0) g/dL Albumin/Globulin Ratio (0.9-1.6) TSH 3rd Generation (0.36-3.74) uIU/mL Urine Color YELLOW Urine Appearance CLEAR Urine pH 6.0 (5.0-8.0) Ur Specific [place] 1.025 (1.001-1.035) Urine Protein NEGATIVE (NEGATIVE) mg/dL Urine Glucose (UA) NEGATIVE (NEGATIVE) mg/dL Urine Ketones NEGATIVE (NEGATIVE) mg/dL Urine Occult Blood NEGATIVE (NEGATIVE) Urine Nitrite NEGATIVE (NEGATIVE) Urine Bilirubin NEGATIVE (NEGATIVE) Urine Urobilinogen 0.2 (<2.0) EU/dL Ur Leukocyte Esterase NEGATIVE (NEGATIVE) Salicylates (0-20) mg/dL Urine Opiates Screen NEGATIVE (NEGATIVE) Ur Oxycodone Screen NEGATIVE (NEGATIVE) Urine Methadone Screen NEGATIVE (NEGATIVE) Acetaminophen ug/mL Ur Barbiturates Screen NEGATIVE (NEGATIVE) Ur Phencyclidine Scrn NEGATIVE (NEGATIVE) Ur Amphetamine Screen NEGATIVE (NEGATIVE) U Methamphetamines Scrn NEGATIVE (NEGATIVE) U Benzodiazepines Scrn NEGATIVE (NEGATIVE) U Cocaine Metab Screen NEGATIVE (NEGATIVE) U Marijuana (THC) Screen NEGATIVE (NEGATIVE) Ethyl Alcohol mg/dL 07/19/19 Range/Units 06:23 WBC (4.0-11.0) K/uL RBC (4.30-5.90) M/uL Hgb (12.0-16.0) g/dL Hct (36.0-46.0) % MCV (80.0-98.0) fL MCH (27.0-32.0) pg MCHC (31.0-37.0) g/dL RDW Std Deviation (28.0-62.0) fl RDW Coeff of Dez (11.0-15.0) % Plt Count (150-400) K/uL MPV (7.40-12.00) fL Neut % (Auto) (48.0-80.0) % Lymph % (Auto) (16.0-40.0) % [place] % (Auto) (0.0-15.0) % Eos % (Auto) (0.0-7.0) % Baso % (Auto) (0.0-1.5) % Neut # (Auto) (1.4-5.7) K/uL Lymph # (Auto) (0.6-2.4) K/uL [place] # (Auto) (0.0-0.8) K/uL Eos # (Auto) (0.0-0.7) K/uL Baso # (Auto) (0.0-0.1) K/uL Nucleated RBC % /100WBC Nucleated RBCs # K/uL Sodium 141 (136-145) mmol/L Potassium 3.7 (3.5-5.1) mmol/L Chloride 109 H (98-107) mmol/L Carbon Dioxide 26.3 (21.0-32.0) mmol/L BUN 11 (7.0-18.0) mg/dL Creatinine 0.9 (0.6-1.0) mg/dL Est Cr Clr Drug Dosing 61.53 mL/min Estimated GFR (MDRD) > 60.0 ml/min Glucose 91 (74-106) mg/dL Calcium 7.8 L (8.5-10.1) mg/dL Magnesium (1.8-2.4) mg/dL Total Bilirubin (0.2-1.0) mg/dL AST (15-37) IU/L ALT (14-63) IU/L Alkaline Phosphatase (46-116) U/L Total Protein (6.4-8.2) g/dL Albumin (3.4-5.0) g/dL Globulin (2.6-4.0) g/dL Albumin/Globulin Ratio (0.9-1.6) TSH 3rd Generation (0.36-3.74) uIU/mL Urine Color Urine Appearance Urine pH (5.0-8.0) Ur Specific [place] (1.001-1.035) Urine Protein (NEGATIVE) mg/dL Urine Glucose (UA) (NEGATIVE) mg/dL Urine Ketones (NEGATIVE) mg/dL Urine Occult Blood (NEGATIVE) Urine Nitrite (NEGATIVE) Urine Bilirubin (NEGATIVE) Urine Urobilinogen (<2.0) EU/dL Ur Leukocyte Esterase (NEGATIVE) Salicylates (0-20) mg/dL Urine Opiates Screen (NEGATIVE) Ur Oxycodone Screen (NEGATIVE) Urine Methadone Screen (NEGATIVE) Acetaminophen ug/mL Ur Barbiturates Screen (NEGATIVE) Ur Phencyclidine Scrn (NEGATIVE) Ur Amphetamine Screen (NEGATIVE) U Methamphetamines Scrn (NEGATIVE) U Benzodiazepines Scrn (NEGATIVE) U Cocaine Metab Screen (NEGATIVE) U Marijuana (THC) Screen (NEGATIVE) Ethyl Alcohol mg/dL Med Orders - Current: Current Medications Acetaminophen (Tylenol) 650 mg PO Q4H PRN PRN Reason: Pain (Mild 1-3) Last Admin: 07/19/19 07:19 Dose: 650 mg Citalopram Hydrobromide (Celexa) 10 mg PO DAILY [facility] Last Admin: 07/19/19 09:41 Dose: 10 mg Folic Acid (Folic Acid) 1 mg PO BEDTIME [facility] Last Admin: 07/18/19 21:01 Dose: 1 mg Gabapentin (Neurontin) 600 mg PO BID [facility] Last Admin: 07/19/19 09:42 Dose: 600 mg Lorazepam (Ativan) 1 mg IV Q4H PRN PRN Reason: CIWAA Nicotine (Habitrol) 7 mg TRDERM DAILY [facility] Last Admin: 07/19/19 09:42 Dose: 7 mg Ondansetron HCl (Zofran) 4 mg IVPUSH Q4H PRN PRN Reason: Nausea Rivaroxaban (Xarelto) 10 mg PO DAILY [facility] Last Admin: 07/19/19 09:41 Dose: 10 mg Sodium Chloride (Saline Flush) 2.5 ml FLUSH ASDIRECTED PRN PRN Reason: Keep Vein Open Thiamine HCl (Vitamin B-1) 100 mg PO BEDTIME [facility] Last Admin: 07/18/19 21:01 Dose: 100 mg Discontinued Medications Lorazepam (Ativan) 1 mg IVPUSH ONETIME ONE Stop: 07/18/19 11:33 Last Admin: 07/18/19 12:16 Dose: 1 mg - Exam General: Alert, Oriented, Cooperative, No Acute Distress Lungs: Clear to Auscultation, Normal Respiratory Effort Cardiovascular: Regular Rate, Regular Rhythm GI/Abdominal Exam: Normal Bowel Sounds, Soft, Non-Tender Extremities: Normal Inspection, Normal Range of Motion, Non-Tender, No Pedal Edema Neurological: No New Focal Deficit Psy/Mental Status: Hallucinations, Withdrawal Symptoms Sepsis Event Note - Evaluation Sepsis Screening Result: No Definite Risk - Focused Exam Vital Signs: Vital Signs Temp Pulse Resp BP Pulse Ox 07/19/19 07:20 97.6 F 65 16 108/65 97 07/19/19 04:00 97.1 F 56 L 16 103/58 L 98 07/19/19 00:00 98.1 F 77 16 121/67 98 Date Exam was Performed: 07/19/19 Time Exam was Performed: 12:53 - Problem List & Annotations (1) Hallucinations SNOMED Code(s): 4120592 Code(s): R44.3 - HALLUCINATIONS, UNSPECIFIED Status: Acute Current Visit : Yes (2) Delirium SNOMED Code(s): 7286297 Code(s): R41.0 - DISORIENTATION, UNSPECIFIED Status: Acute Current Visit : Yes (3) Alcohol abuse SNOMED Code(s): 91594506 Code(s): F10.10 - ALCOHOL ABUSE, UNCOMPLICATED Status: Chronic Current Visit: Yes (4) History of CVA (cerebrovascular accident) SNOMED Code(s): 589299549 Code(s): Z86.73 - PRSNL HX OF TIA (TIA), AND CEREB INFRC W/O RESID DEFICITS Status: Chronic Current Visit: Yes (5) Anticoagulant long-term use SNOMED Code(s): 492532088 Code(s): Z79.01 - FINANCIAL REPORTING MANAGER (CURRENT) USE OF ANTICOAGULANTS Status: Chronic Current Visit: Yes (6) Depression SNOMED Code(s): 64682353 Code(s): F32.9 - MAJOR DEPRESSIVE DISORDER, SINGLE EPISODE, UNSPECIFIED Status: Chronic Current Visit: Yes (7) Anxiety SNOMED Code(s): 79802304 Code(s): F41.9 - ANXIETY DISORDER, UNSPECIFIED Status: Chronic Current Visit: Yes (8) Tobacco abuse SNOMED Code(s): 978550253 Code(s): Z72.0 - TOBACCO USE Status: Chronic Current Visit: Yes (9) Multiple sclerosis SNOMED Code(s): 34289785 Code(s): G35 - MULTIPLE SCLEROSIS Status: Chronic Current Visit: Yes (10) Fibromyalgia SNOMED Code(s): 107469393 Code(s): M79.7 - FIBROMYALGIA Status: Chronic Current Visit: Yes - Problem List Review Problem List Initiated/Reviewed/Updated: Yes - My Orders Last 24 Hours: My Active Orders 07/18/19 14:43 CIWAA Assessment [RC] Q4H Intake and Output [RC] Q12H Oxygen Therapy [RC] PRN Up With Assistance [RC] ASDIRECTED VTE/DVT Education [RC] PER UNIT ROUTINE Vital Signs [RC] Q4H Acetaminophen [Tylenol] 650 mg PO Q4H PRN LORazepam [Ativan] 1 mg IV Q4H PRN Ondansetron [Zofran] 4 mg IVPUSH Q4H PRN Sodium Chloride 0.9% [Saline Flush] 2.5 ml FLUSH ASDIRECTED PRN Saline Lock Insert [OM.PC] Routine Resuscitation Status Routine 07/18/19 15:15 Nicotine [Habitrol] 7 mg TRDERM DAILY 07/18/19 21:00 Folic Acid 1 mg PO BEDTIME Thiamine [Vitamin B-1] 100 mg PO BEDTIME 07/18/19 Lunch Regular Diet [DIET] 07/19/19 09:00 Citalopram [Celexa] 10 mg PO DAILY Gabapentin [Neurontin] 600 mg PO BID Rivaroxaban [Xarelto] 10 mg PO DAILY - Plan Plan:: This 49 year old female admitted with hallucinations and delirium, consider Ambien withdrawal in combination with alcohol withdrawal. 1. Delirium/hallucinations: Continues today, but improved. Ativan per CIWAA protocol. Consider Ambien withdrawal along with alcohol withdrawal, four days since last ETOH drink. But reports she has never withdrawn like this in the past. Ua and U tox negative. 2. Alcohol withdrawal: CIWAA protocol with Ativan. Thiamine and folic acid supplementation. Discussed interest in sobriety or help with this and she is currently not interested. 3. Insomnia: takes Ambien, has been out for over 5 days, could be cause of increased insomnia, agitation and delirium. Recommend discontinuation completely of Ambien and discuss with PCP alternatives. Patient became upset today when discussing discontinuation of sleeping aids. Left message with PCP regarding admission and recommendation of DCing ambien. 4. Hx CVA: Continue Xarelto. Will add Protonix po. Discussed at length concern with alcohol use and blood thinner, as well as history of some sort of internal bleeding per daughter, 2-5 years ago. 5 MS/fibromyalgia: Takes Gabapentin, has been taking this appropriately. VTE prophylaxis: Xarelto Dispo: 2 days.
[2019-07-19] MEDS: LORazepam 2 MG/ML SDV IV PRN ×2 (16:02→20:42)
[2019-07-19] MEDS: Folic Acid 1 MG Tab PO SCH (20:25)
[2019-07-19] MEDS: Thiamine 100 MG Tab PO SCH (20:25)
[2019-07-20] MEDS: Acetaminophen 325 MG Tab PO PRN ×2 (07:48→20:57)
[2019-07-20] MEDS: Citalopram 20 MG Tab PO SCH (08:36)
[2019-07-20] MEDS: Gabapentin 300 MG Cap PO SCH ×2 (08:36→20:56)
[2019-07-20] MEDS: Rivaroxaban 10 MG Tab PO SCH (08:37)
[2019-07-20] MEDS: Nicotine 7 MG/24 Hr Patch TRDERM SCH (08:38)
[2019-07-20] MEDS: LORazepam 2 MG/ML SDV IV PRN ×2 (09:00→19:16)
--- NOTE | 2019-07-20 17:42 | PCM.PN ---
- General Info Date of Service: 07/20/19 Subjective Update: pt. still endorsing anxiety w/ hallucinations (seeing her dog). Otherwise no acute pain. Functional Status: Reports: Pain Controlled - Review of Systems General: Reports: No Symptoms Pulmonary: Reports: No Symptoms Cardiovascular: Reports: No Symptoms Gastrointestinal: Reports: No Symptoms Genitourinary: Reports: No Symptoms Musculoskeletal: Reports: No Symptoms Neurological: Denies: Headache Psychiatric: Reports: Depression, Anxiety, Hallucinations - Patient Data Vitals - Most Recent: Last Vital Signs Temp 98.9 F 07/20/19 15:55 Pulse 68 07/20/19 15:55 Resp 18 07/20/19 15:55 BP 110/57 L 07/20/19 15:55 Pulse Ox 99 07/20/19 15:55 Weight - Most Recent: 112 lb 6.4 oz I&O - Last 24 Hours: Intake & Output 07/20/19 07/20/19 07/20/19 06:59 14:59 22:59 Intake Total 350 560 Output Total 300 1000 Balance 50 -440 Med Orders - Current: Current Medications Acetaminophen (Tylenol) 650 mg PO Q4H PRN PRN Reason: Pain (Mild 1-3) Last Admin: 07/20/19 07:48 Dose: 650 mg Citalopram Hydrobromide (Celexa) 10 mg PO DAILY [facility] Last Admin: 07/20/19 08:36 Dose: 10 mg Folic Acid (Folic Acid) 1 mg PO BEDTIME [facility] Last Admin: 07/19/19 20:25 Dose: 1 mg Gabapentin (Neurontin) 600 mg PO BID [facility] Last Admin: 07/20/19 08:36 Dose: 600 mg Lorazepam (Ativan) 1 mg IV Q4H PRN PRN Reason: CIWAA Last Admin: 07/20/19 09:00 Dose: 1 mg Nicotine (Habitrol) 7 mg TRDERM DAILY [facility] Last Admin: 07/20/19 08:38 Dose: 7 mg Ondansetron HCl (Zofran) 4 mg IVPUSH Q4H PRN PRN Reason: Nausea Rivaroxaban (Xarelto) 10 mg PO DAILY [facility] Last Admin: 07/20/19 08:37 Dose: 10 mg Sodium Chloride (Saline Flush) 2.5 ml FLUSH ASDIRECTED PRN PRN Reason: Keep Vein Open Thiamine HCl (Vitamin B-1) 100 mg PO BEDTIME [facility] Last Admin: 07/19/19 20:25 Dose: 100 mg Discontinued Medications Lorazepam (Ativan) 1 mg IVPUSH ONETIME ONE Stop: 07/18/19 11:33 Last Admin: 07/18/19 12:16 Dose: 1 mg - Exam General: Alert, Oriented, Cooperative, No Acute Distress HEENT: EOMI, Mucous Membr. Moist/[place] Lungs: Clear to Auscultation Cardiovascular: Regular Rate, Regular Rhythm GI/Abdominal Exam: Soft, Non-Tender Neurological: No New Focal Deficit, Normal Speech Psy/Mental Status: Alert, Anxious Sepsis Event Note - Evaluation Sepsis Screening Result: No Definite Risk - Focused Exam Vital Signs: Vital Signs Temp Pulse Resp BP Pulse Ox 07/20/19 15:55 98.9 F 68 18 110/57 L 99 07/20/19 12:00 98.8 F 63 16 99/68 98 07/20/19 08:00 98.1 F 73 18 104/67 98 Date Exam was Performed: 07/20/19 Time Exam was Performed: 17:40 - Problem List Review Problem List Initiated/Reviewed/Updated: Yes - My Orders Last 24 Hours: My Active Orders 07/21/19 05:11 CBC WITH AUTO DIFF [HEME] AM COMPREHENSIVE METABOLIC PN,CMP [CHEM] AM - Plan Plan:: This 49 year old female admitted with hallucinations and delirium, consider Ambien withdrawal in combination with alcohol withdrawal. 1. Delirium/hallucinations: Continues today, but improved. Ativan per CIWAA protocol. Consider Ambien withdrawal along with alcohol withdrawal, four days since last ETOH drink. But reports she has never withdrawn like this in the past. Ua and U tox negative. 2. Alcohol withdrawal: CIWAA protocol with Ativan. Thiamine and folic acid supplementation. Discussed interest in sobriety or help with this and she is currently not interested. 3. Insomnia: takes Ambien, has been out for over 5 days, could be cause of increased insomnia, agitation and delirium. Recommend discontinuation completely of Ambien and discuss with PCP alternatives. Patient became upset today when discussing discontinuation of sleeping aids. Left message with PCP regarding admission and recommendation of DCing ambien. 4. Hx CVA: Continue Xarelto. Will add Protonix po. Discussed at length concern with alcohol use and blood thinner, as well as history of some sort of internal bleeding per daughter, 2-5 years ago. 5 MS/fibromyalgia: Takes Gabapentin, has been taking this appropriately. VTE prophylaxis: Xarelto
[2019-07-20] MEDS: Thiamine 100 MG Tab PO SCH (20:56)
[2019-07-20] MEDS: Folic Acid 1 MG Tab PO SCH (20:56)
[2019-07-21] MEDS: LORazepam 2 MG/ML SDV IV PRN (04:14)
[2019-07-21] MEDS: Acetaminophen 325 MG Tab PO PRN (04:20)
[2019-07-21 06:43] LABS: CARBON DIOXIDE,CO2 25.5 mmol/L (21.0-32.0); POTASSIUM,K 3.4 mmol/L (3.5-5.1)
[2019-07-21] MEDS: Citalopram 20 MG Tab PO SCH (09:15)
[2019-07-21] MEDS: Gabapentin 300 MG Cap PO SCH (09:15)
[2019-07-21] MEDS: Nicotine 7 MG/24 Hr Patch TRDERM SCH (09:16)
[2019-07-21] MEDS: Rivaroxaban 10 MG Tab PO SCH (09:16)
--- NOTE | 2019-07-21 11:19 | PCM.DCSUM1 ---
Discharge Summary - Hospital Course Diagnosis: Stroke: No - Discharge Data Discharge Disposition: Home, Self-Care 01 Condition: Stable - Referral to Home Health Primary Care Physician: Natacha Headley NP - Discharge Diagnosis/Problem(s) (1) Benzodiazepine withdrawal with delirium SNOMED Code(s): 085086875 ICD Code: F13.231 - SEDATV/HYP/ANXIOLYTC DEPENDENCE W WITHDRAWAL DELIRIUM Status: Acute Current Visit: Yes (2) Delirium SNOMED Code(s): 3103440 ICD Code: R41.0 - DISORIENTATION, UNSPECIFIED Status: Acute Current Visit : Yes (3) Hallucinations SNOMED Code(s): 9659231 ICD Code: R44.3 - HALLUCINATIONS, UNSPECIFIED Status: Acute Current Visit : Yes (4) Alcohol abuse SNOMED Code(s): 44723242 ICD Code: F10.10 - ALCOHOL ABUSE, UNCOMPLICATED Status: Chronic Current Visit: Yes - Patient Instructions Diet: Regular Diet as Tolerated Activity: As Tolerated Showering/Bathing: May Shower Notify Provider of: Fever, Increased Pain, Swelling and Redness, Nausea and/or Vomiting - Discharge Plan *PRESCRIPTION DRUG MONITORING PROGRAM REVIEWED*: No *COPY OF PRESCRIPTION DRUG MONITORING REPORT IN PATIENT LUNA: No Prescriptions/Med Rec: Acetaminophen [Tylenol] 650 mg PO Q4H PRN #30 tablet PRN Reason: Pain (Mild 1-3) Folic Acid 1 mg PO BEDTIME #30 tablet Nicotine [Habitrol] 7 mg TRDERM DAILY #14 patch Thiamine [Vitamin B-1] 100 mg PO BEDTIME 30 Days #30 tablet Home Medications: Home Meds Cholecalciferol (Vitamin D3) [Vitamin D3] 5,000 unit PO DAILY 07/18/19 [History] Citalopram [Citalopram HBr] 10 mg PO DAILY 07/18/19 [History] Dicyclomine [Bentyl] 10 mg PO Q6HR PRN 07/18/19 [History] Furosemide 20 mg PO DAILY PRN 07/18/19 [History] Gabapentin [Neurontin] 2 cap PO BID 07/18/19 [History] Hydrocodone/Acetaminophen [Hydrocodon-Acetaminophen 5-325] 1 tab PO DAILY PRN [History] Potassium Chloride 20 meq PO DAILY PRN 07/18/19 [History] Rivaroxaban [Xarelto] 10 mg PO DAILY 07/18/19 [History] Acetaminophen [Tylenol] 650 mg PO Q4H PRN #30 tablet 07/21/19 [Rx] Folic Acid 1 mg PO BEDTIME #30 tablet 07/21/19 [Rx] Nicotine [Habitrol] 7 mg TRDERM DAILY #14 patch 07/21/19 [Rx] Thiamine [Vitamin B-1] 100 mg PO BEDTIME 30 Days #30 tablet 07/21/19 [Rx] Oxygen Therapy Mode: Room Air Forms: ED Department Discharge Referrals: [facility] [Outside] Natacha Headley NP [Primary Care Provider] - 07/29/19 7:00 am - Patient Data Vitals - Most Recent: Last Vital Signs Temp 36.4 C 07/21/19 08:00 Pulse 69 07/21/19 08:00 Resp 16 07/21/19 08:00 BP 105/59 L 07/21/19 08:00 Pulse Ox 98 07/21/19 08:00 Weight - Most Recent: 50.984 kg I&O - Last 24 hours: Intake & Output 07/20/19 07/21/19 07/21/19 22:59 06:59 14:59 Intake Total 560 750 Output Total 1000 500 Balance -440 250 Lab Results - Last 24 hrs: Laboratory Results - last 24 hr 07/21/19 07/21/19 Range/Units 05:55 05:55 WBC 4.12 (4.0-11.0) K/uL RBC 2.77 L (4.30-5.90) M/uL Hgb 7.9 L (12.0-16.0) g/dL Hct 26.1 L (36.0-46.0) % MCV 94.2 (80.0-98.0) fL MCH 28.5 (27.0-32.0) pg MCHC 30.3 L (31.0-37.0) g/dL RDW Std Deviation 68.8 H (28.0-62.0) fl RDW Coeff of Dez 20 H (11.0-15.0) % Plt Count 111 L (150-400) K/uL MPV 10.00 (7.40-12.00) fL Neut % (Auto) 45.7 L (48.0-80.0) % Lymph % (Auto) 39.8 (16.0-40.0) % Davidson % (Auto) 11.4 (0.0-15.0) % Eos % (Auto) 2.9 (0.0-7.0) % Baso % (Auto) 0.2 (0.0-1.5) % Neut # (Auto) 1.9 (1.4-5.7) K/uL Lymph # (Auto) 1.6 (0.6-2.4) K/uL Davidson # (Auto) 0.5 (0.0-0.8) K/uL Eos # (Auto) 0.1 (0.0-0.7) K/uL Baso # (Auto) 0.0 (0.0-0.1) K/uL Nucleated RBC % 0.0 /100WBC Nucleated RBCs # 0 K/uL Sodium 142 (136-145) mmol/L Potassium 3.4 L (3.5-5.1) mmol/L Chloride 109 H (98-107) mmol/L Carbon Dioxide 25.5 (21.0-32.0) mmol/L BUN 12 (7.0-18.0) mg/dL Creatinine 1.1 H (0.6-1.0) mg/dL Est Cr Clr Drug Dosing 50.34 mL/min Estimated GFR (MDRD) 53.0 ml/min Glucose 160 H (74-106) mg/dL Calcium 7.8 L (8.5-10.1) mg/dL Total Bilirubin 0.1 L (0.2-1.0) mg/dL AST 44 H (15-37) IU/L ALT 26 (14-63) IU/L Alkaline Phosphatase 118 H (46-116) U/L Total Protein 5.0 L (6.4-8.2) g/dL Albumin 1.9 L (3.4-5.0) g/dL Globulin 3.1 (2.6-4.0) g/dL Albumin/Globulin Ratio 0.6 L (0.9-1.6) Med Orders - Current: Current Medications Acetaminophen (Tylenol) 650 mg PO Q4H PRN PRN Reason: Pain (Mild 1-3) Last Admin: 07/21/19 04:20 Dose: 650 mg Citalopram Hydrobromide (Celexa) 10 mg PO DAILY [facility] Last Admin: 07/21/19 09:15 Dose: 10 mg Folic Acid (Folic Acid) 1 mg PO BEDTIME [facility] Last Admin: 07/20/19 20:56 Dose: 1 mg Gabapentin (Neurontin) 600 mg PO BID [facility] Last Admin: 07/21/19 09:15 Dose: 600 mg Lorazepam (Ativan) 1 mg IV Q4H PRN PRN Reason: CIWAA Last Admin: 07/21/19 04:14 Dose: 1 mg Nicotine (Habitrol) 7 mg TRDERM DAILY [facility] Last Admin: 07/21/19 09:16 Dose: 7 mg Ondansetron HCl (Zofran) 4 mg IVPUSH Q4H PRN PRN Reason: Nausea Rivaroxaban (Xarelto) 10 mg PO DAILY [facility] Last Admin: 07/21/19 09:16 Dose: 10 mg Sodium Chloride (Saline Flush) 2.5 ml FLUSH ASDIRECTED PRN PRN Reason: Keep Vein Open Thiamine HCl (Vitamin B-1) 100 mg PO BEDTIME [facility] Last Admin: 07/20/19 20:56 Dose: 100 mg Discontinued Medications Lorazepam (Ativan) 1 mg IVPUSH ONETIME ONE Stop: 07/18/19 11:33 Last Admin: 07/18/19 12:16 Dose: 1 mg
== END 2019-07-21 13:05 | disposition home or self-care (01) | DRG 775 ==
LOC: MW.ED 10:28 → MW.MS 14:00
PROVIDERS: ADMIT Internal Medicine; ATTEND Internal Medicine
DX: F13.231 Sedative, hypnotic or anxiolytic dependence with withdrawal delirium (principal); K86.1 Other chronic pancreatitis; F10.239 Alcohol dependence with withdrawal, unspecified; H54.7 Unspecified visual loss; G89.29 Other chronic pain; F17.210 Nicotine dependence, cigarettes, uncomplicated; M79.7 Fibromyalgia; G35 Multiple sclerosis; F41.9 Anxiety disorder, unspecified; F32.9 Major depressive disorder, single episode, unspecified; G47.00 Insomnia, unspecified; Z90.49 Acquired absence of other specified parts of digestive tract; Z79.899 Other long term (current) drug therapy; Z98.84 Bariatric surgery status; Z86.73 Personal history of transient ischemic attack (TIA), and cerebral infarction without residual deficits; Z79.01 Long term (current) use of anticoagulants; Z88.0 Allergy status to penicillin; Z88.8 Allergy status to other drugs, medicaments and biological substances; Z86.718 Personal history of other venous thrombosis and embolism; Y90.0 Blood alcohol level of less than 20 mg/100 ml
CPT/HCPCS: 36415; 70450; 70450-26; 71045; 71045-26; 80048; 80053; 80305-QW; 81003; 83735; 84443; 85025; 96374; 99285-25; A9270-GY; G0480; J2060

== ENCOUNTER 2020-07-28 12:51 | Emergency (ER) | payer BC ==
--- NOTE | 2020-07-28 13:21 | EDM.PDOC ---
ED HPI GENERAL MEDICAL PROBLEM - General Chief Complaint: General Stated Complaint: short of breath light headed Time Seen by Provider: 07/28/20 12:59 Source of Information: Reports: Patient History Limitations: Reports: No Limitations - History of Present Illness INITIAL COMMENTS - FREE TEXT/NARRATIVE: Patient is a 50-year-old female who presents today for weakness and fatigue. Patient also feels lightheaded. Patient denies any shortness of breath chest pain headache fevers chills. Patient did mention some nausea but still able tolerate p.o. Body aches Pain Score (Numeric/FACES): 4 - Related Data Allergies Allergy/AdvReac Type Severity Reaction Status Date / Time metoclopramide [From Reglan] Allergy Hallucinati Verified 07/28/20 13:07 ons Penicillins Allergy Rash Verified 07/28/20 13:07 Home Meds: Home Meds Cholecalciferol (Vitamin D3) [Vitamin D3] 5,000 unit PO DAILY 07/18/19 [History] Citalopram [Citalopram HBr] 10 mg PO DAILY 07/18/19 [History] Dicyclomine [Bentyl] 10 mg PO Q6HR PRN 07/18/19 [History] Furosemide 20 mg PO DAILY PRN 07/18/19 [History] Gabapentin [Neurontin] 2 cap PO BID 07/18/19 [History] Hydrocodone/Acetaminophen [Hydrocodone-Acetamin 5-325 mg] 1 tab PO DAILY PRN 07/18/19 [History] Potassium Chloride 20 meq PO DAILY PRN 07/18/19 [History] Rivaroxaban [Xarelto] 10 mg PO DAILY 07/18/19 [History] Acetaminophen [Tylenol] 650 mg PO Q4H PRN #30 tablet 07/21/19 [Rx] Folic Acid 1 mg PO BEDTIME #30 tablet 07/21/19 [Rx] Nicotine [Habitrol] 7 mg TRDERM DAILY #14 patch 07/21/19 [Rx] Thiamine [Vitamin B-1] 100 mg PO BEDTIME 30 Days #30 tablet 07/21/19 [Rx] Past Medical History Cardiovascular History: Reports: Blood Clots/VTE/DVT Respiratory History: Reports: None Gastrointestinal History: Reports: Irritable Bowel Syndrome, Pancreatitis Musculoskeletal History: Reports: Fibromyalgia Neurological History: Reports: CVA, MS, TIA Psychiatric History: Reports: Addiction, Anxiety, Depression Endocrine/Metabolic History: Reports: None - Infectious Disease History Infectious Disease History: Reports: Chicken Pox - Past Surgical History Head Surgeries/Procedures: Reports: None Cardiovascular Surgical History: Reports: None GI Surgical History: Reports: Appendectomy, Cholecystectomy, Other (See Below) Other GI Surgeries/Procedures: gastric bypass Social & Family History - Family History Family Medical History: No Pertinent Family History - Tobacco Use Tobacco Use Status *Q: Current Every Day Tobacco User Years of Tobacco use: 20 Packs/Tins Daily: 1 - Caffeine Use Caffeine Use: Reports: None - Recreational Drug Use Recreational Drug Use: Yes Recreational Drug Type: Reports: Marijuana/Hashish - Living Situation & Occupation Living situation: Reports: Occupation: Disabled ED ROS GENERAL - Review of Systems Review Of Systems: See Below Constitutional: Reports: No Symptoms HEENT: Reports: No Symptoms Respiratory: Reports: No Symptoms Cardiovascular: Reports: No Symptoms Endocrine: Reports: No Symptoms GI/Abdominal: Reports: No Symptoms : Reports: No Symptoms Musculoskeletal: Reports: No Symptoms Skin: Reports: No Symptoms Neurological: Reports: No Symptoms Psychiatric: Reports: No Symptoms Hematologic/Lymphatic: Reports: No Symptoms Immunologic: Reports: No Symptoms ED EXAM, GENERAL - Physical Exam Exam: See Below Exam Limited By: No Limitations General Appearance: Alert, WD/WN, No Apparent Distress Head: Atraumatic, Normocephalic Respiratory/Chest: No Respiratory Distress, Lungs Clear, Normal Breath Sounds Cardiovascular: Normal Peripheral Pulses, Regular Rate, Rhythm GI/Abdominal: Normal Bowel Sounds, Soft, Non-Tender, No Distention Back Exam: Normal Inspection, Full Range of Motion Extremities: Normal Inspection, Normal Range of Motion, Non-Tender, No Pedal Edema Neurological: Alert, Oriented, CN II-XII Intact, Normal Cognition, Normal Gait, Normal Reflexes, No Motor/Sensory Deficits Psychiatric: Normal Affect, Normal Mood Lymphatic: No Adenopathy #1 Interpretation EKG Date: 07/28/20 Time: 13:31 Rhythm: NSR Rate (Beats/Min): 68 ST-T: Normal Course - Vital Signs Last Recorded V/S: Last Vital Signs Temp 96.3 F L 07/28/20 13:08 Pulse 60 07/28/20 16:03 Resp 16 07/28/20 16:03 BP 109/44 L 07/28/20 16:03 Pulse Ox 99 07/28/20 16:03 - Orders/Labs/Meds Orders: Active Orders 24 hr Category Date Time Status EKG Documentation Completion [RC] STAT Care 07/28/20 13:13 Active Orthostatic Vital Signs [RC] ASDIRECTED Care 07/28/20 13:13 Active Labs: Laboratory Tests 07/28/20 07/28/20 Range/Units 13:31 13:31 WBC 5.42 (4.0-11.0) K/uL RBC 3.47 L (4.30-5.90) M/uL Hgb 9.5 L (12.0-16.0) g/dL Hct 29.4 L (36.0-46.0) % MCV 84.7 (80.0-98.0) fL MCH 27.4 (27.0-32.0) pg MCHC 32.3 (31.0-37.0) g/dL RDW Std Deviation 68.9 H (28.0-62.0) fl RDW Coeff of Dez 23 H (11.0-15.0) % Plt Count 83 L (150-400) K/uL MPV 9.70 (7.40-12.00) fL Neut % (Auto) 85.6 H (48.0-80.0) % Lymph % (Auto) 9.8 L (16.0-40.0) % [place]ully % (Auto) 4.4 (0.0-15.0) % Eos % (Auto) 0.2 (0.0-7.0) % Baso % (Auto) 0.0 (0.0-1.5) % Neut # (Auto) 4.6 (1.4-5.7) K/uL Lymph # (Auto) 0.5 L (0.6-2.4) K/uL [place]ully # (Auto) 0.2 (0.0-0.8) K/uL Eos # (Auto) 0.0 (0.0-0.7) K/uL Baso # (Auto) 0.0 (0.0-0.1) K/uL Sodium 140 (136-145) mmol/L Potassium 3.9 (3.5-5.1) mmol/L Chloride 103 (98-107) mmol/L Carbon Dioxide 25.4 (21.0-32.0) mmol/L BUN 6 L (7.0-18.0) mg/dL Creatinine 0.9 (0.6-1.0) mg/dL Est Cr Clr Drug Dosing 64.97 mL/min Estimated GFR (MDRD) > 60.0 ml/min Glucose 186 H (74-106) mg/dL Calcium 9.2 (8.5-10.1) mg/dL Total Bilirubin 0.4 (0.2-1.0) mg/dL AST 51 H (15-37) IU/L ALT 50 (14-63) IU/L Alkaline Phosphatase 113 (46-116) U/L Troponin I < 0.050 (0.000-0.056) ng/mL Total Protein 6.7 (6.4-8.2) g/dL Albumin 2.9 L (3.4-5.0) g/dL Globulin 3.8 (2.6-4.0) g/dL Albumin/Globulin Ratio 0.8 L (0.9-1.6) Meds: Medications Discontinued Medications Generic Name Dose Route Start Last Admin Trade Name Freq PRN Reason Stop Dose Admin Folic Acid 1 mg 07/28/20 16:16 Folic Acid PO 07/28/20 16:17 ONETIME ONE Sodium Chloride 1,000 mls @ 999 mls/hr 07/28/20 13:12 07/28/20 13:29 Normal Saline IV 07/28/20 14:12 999 mls/hr .BOLUS ONE Administration Meclizine HCl 25 mg 07/28/20 14:46 07/28/20 14:56 Antivert PO 07/28/20 14:47 25 mg ONETIME ONE Administration Thiamine HCl 100 mg 07/28/20 16:16 Vitamin B-1 PO 07/28/20 16:17 ONETIME ONE - Re-Assessments/Exams Free Text/Narrative Re-Assessment/Exam: 07/28/20 14:57 Patient's hemoglobin is at her baseline. Patient has some low platelets with platelets have been low in the past is always down to 69,000 back to 2019. Patient EKG labs reviewed. We also took orthostatics as well. We will obtain a CT scan of head if negative patient can be discharged home to follow-up with her PCP. 07/28/20 16:[address] head is negative show stable chronic findings. Again we reviewed patient's labs in the out seem better than what they were in the past and platelets and LFTs. Patient will be discharged home. Departure - Departure Time of Disposition: 16:20 Disposition: Home, Self-Care 01 Condition: Good Clinical Impression: Lightheadedness - Discharge Information *PRESCRIPTION DRUG MONITORING PROGRAM REVIEWED*: Not Applicable *COPY OF PRESCRIPTION DRUG MONITORING REPORT IN PATIENT LUNA: Not Applicable Instructions: Dizziness, [id number] Referrals: PCP,None [Primary Care Provider] - Forms: ED Department Discharge Additional Instructions: The following information is given to patients seen in the emergency department who are being discharged to home. This information is to outline your options for follow-up care. We provide all patients seen in our emergency department with a follow-up referral. The need for follow-up, as well as the timing and circumstances, are variable depending upon the specifics of your emergency department visit. If you don't have a primary care physician on staff, we will provide you with a referral. We always advise you to contact your personal physician following an emergency department visit to inform them of the circumstance of the visit and for follow-up with them and/or the need for any referrals to a consulting specialist. The emergency department will also refer you to a specialist when appropriate. This referral assures that you have the opportunity for follow-up care with a specialist. All of these measure are taken in an effort to provide you with optimal care, which includes your follow-up. Under all circumstances we always encourage you to contact your private physician who remains a resource for coordinating your care. When calling for follow-up care, please make the office aware that this follow-up is from your recent emergency room visit. If for any reason you are refused follow-up, please contact the [facility] Emergency Department at and asked to speak to the emergency department charge nurse. Please follow up with your primary care physician. If you do not have a primary care physician, see below: [facility] [address] [place] [id number] [facility] [address] [place], [place] [id number] [facility] [address] [place] [id number] Please call and follow-up with your primary care physician tomorrow if you have any other concerning findings please remove return to the ED. Sepsis Event Note (ED) - Evaluation Sepsis Screening Result: No Definite Risk - Focused Exam Vital Signs: Vital Signs Temp Pulse Resp BP Pulse Ox 07/28/20 16:03 60 16 109/44 L 99 07/28/20 15:42 66 16 116/68 100 07/28/20 15:03 73 17 126/57 L 100 07/28/20 14:02 82 105/60 100 07/28/20 13:39 66 17 103/50 L 100 07/28/20 13:08 96.3 F L 71 20 101/55 L 100 - My Orders Last 24 Hours: My Active Orders 07/28/20 13:13 EKG Documentation Completion [RC] STAT Orthostatic Vital Signs [RC] ASDIRECTED - Assessment/Plan Last 24 Hours: My Active Orders 07/28/20 13:13 EKG Documentation Completion [RC] STAT Orthostatic Vital Signs [RC] ASDIRECTED Assessment:: Patient is a 50-year-old female who presented today for lightheadedness. Patient states she is does not feel well. Will obtain EKG labs orthostatic blood pressures and reassess.
[2020-07-28] MEDS: Sodium Chloride 0.9% 1,000 ML IV ONE (13:29)
--- NOTE | 2020-07-28 13:46 | CR ---
Indication: Lightheadedness Comparison: None available. Technique: Single AP view chest Findings: There is hyperinflation and chronic interstitial change. There is no focal consolidation, effusion, or pneumothorax. The cardiomediastinal silhouette is within normal limits. The bony thorax is grossly intact. Impression: Hyperinflation and chronic interstitial change without evidence of dense consolidation. Dictated by Valdez Campos MD @ Jul 28 2020 1:40PM Signed by Dr. Valdez Campos @ Jul 28 2020 1:44PM
[2020-07-28 14:09] LABS: BLOOD UREA NITROGEN,BUN 6 mg/dL (7.0-18.0); CARBON DIOXIDE,CO2 25.4 mmol/L (21.0-32.0); CHLORIDE,CL 103 mmol/L (98-107); GLUCOSE RANDOM 186 mg/dL (74-106); POTASSIUM,K 3.9 mmol/L (3.5-5.1); SODIUM,NA 140 mmol/L (136-145)
[2020-07-28] MEDS: Meclizine 25 MG Tab PO ONE (14:56)
--- NOTE | 2020-07-28 16:10 | CT ---
Indication: Lightheadedness, weakness Technique: Volumetric multidetector CT images of the head were obtained without the administration of low osmolar intravenous contrast. Comparison: CT head July 18, 2019 Findings: There is no intra-axial or extra-axial fluid collection. There is no mass effect or midline shift. The ventricles and sulci are normal in size and position for age. There is again seen prior encephalomalacia and colpocephaly of the left occipital lobe. Otherwise, the brain parenchyma is grossly preserved in attenuation and burciaga-white differentiation. The orbits and their contents are grossly within normal limits. The bony calvarium is grossly intact. The paranasal sinuses are clear. The mastoid air cells are well aerated. Impression: Stable encephalomalacia of the left occipital lobe without evidence of new acute intracranial abnormality. Please note that all CT scans at this facility use dose modulation, iterative reconstruction, and/or weight-based dosing when appropriate to reduce radiation dose to as low as reasonably achievable. Dictated by Valdez Campos MD @ Jul 28 2020 4:01PM Signed by Dr. Valdez Campos @ Jul 28 2020 4:10PM
[2020-07-28] MEDS: Thiamine 100 MG Tab PO ONE (16:37)
[2020-07-28] MEDS: Folic Acid 1 MG Tab PO ONE (16:37)
== END 2020-07-28 16:40 | disposition home or self-care (01) ==
LOC: MW.ED 12:51
DX: R42 Dizziness and giddiness (principal); G35 Multiple sclerosis; Z86.73 Personal history of transient ischemic attack (TIA), and cerebral infarction without residual deficits; Z72.0 Tobacco use; Z88.8 Allergy status to other drugs, medicaments and biological substances; Z88.0 Allergy status to penicillin; Z79.899 Other long term (current) drug therapy; Z86.718 Personal history of other venous thrombosis and embolism; Z79.01 Long term (current) use of anticoagulants
CPT/HCPCS: 36415; 70450; 71045; 80053; 84484; 85025; 93005; 99284; A9270; J7030; 93010

== ENCOUNTER 2021-09-14 21:35 | Emergency (ER) | payer MEDICARE, BC ==
[2021-09-14] MEDS: Morphine 4 MG/ML VIAL IVPUSH STA (23:05)
[2021-09-15] MEDS: Melatonin 3 MG Tab PO STA (02:19)
[2021-09-15] MEDS: Acetaminophen/HYDROcodone 325-5 MG Tab PO STA (02:46)
== END 2021-09-15 03:01 | disposition home or self-care (01) ==
LOC: MW.ED 21:35
DX: S01.111A Laceration without foreign body of right eyelid and periocular area, initial encounter (principal); R56.9 Unspecified convulsions; M25.552 Pain in left hip; G35 Multiple sclerosis; Z88.0 Allergy status to penicillin; Z88.8 Allergy status to other drugs, medicaments and biological substances; Z86.73 Personal history of transient ischemic attack (TIA), and cerebral infarction without residual deficits; Z79.899 Other long term (current) drug therapy; W22.09XA Striking against other stationary object, initial encounter
CPT/HCPCS: 70450; 72170; 82947; 96374; 99291; 99292; A9270; J2270

== ENCOUNTER 2022-05-07 17:01 | Emergency (ER) | payer BC, MEDICARE ==
[2022-05-07 19:18] LABS: CARBON DIOXIDE,CO2 26.8 mmol/L (21.0-32.0); POTASSIUM,K 2.5 mmol/L (3.5-5.1)
[2022-05-07] MEDS ORDERED: Potassium Chloride 10% 20 MEQ/15 ML Soln 30 ML UD Cup PO ONE (19:35)
== END 2022-05-07 19:50 | disposition left against medical advice (07) ==
LOC: MW.ED 17:01
DX: R56.9 Unspecified convulsions (principal); E87.6 Hypokalemia; Z88.8 Allergy status to other drugs, medicaments and biological substances; Z88.0 Allergy status to penicillin; Z79.899 Other long term (current) drug therapy; Z90.49 Acquired absence of other specified parts of digestive tract
CPT/HCPCS: 36415; 80053; 83735; 85007; 85027; 93005; 99284; A9270; 93010; 99283

== ENCOUNTER 2022-06-07 11:45 | Emergency (ER) | payer BC, MEDICARE ==
[2022-06-07] MEDS ORDERED: Sodium Chloride 0.9% 10 ML Syringe FLUSH PRN (12:05)
[2022-06-07] MEDS ORDERED: Sodium Chloride 0.9% 20 ML SDV IV PRN (12:05)
[2022-06-07] MEDS ORDERED: Sodium Chloride 0.9% 2.5 ML Syringe FLUSH PRN (12:05)
[2022-06-07 12:49] LABS: CARBON DIOXIDE,CO2 26.4 mmol/L (21.0-32.0); POTASSIUM,K 3.4 mmol/L (3.5-5.1)
[2022-06-07] MEDS ORDERED: Iopamidol 755 MG/ML 500 ML Multipack Bottle IVPUSH STA (14:18)
[2022-06-07] MEDS ORDERED: Magnesium Sulfate/Water 2 GM in Premix Bag 1 BAG IV ONE (14:43)
[2022-06-07] MEDS ORDERED: Sodium Chloride 0.9% 1,000 ML IV ONE (15:12)
[2022-06-07 15:13] LABS: CORONAVIRUS COVID-19 NAA NEGATIVE (NEGATIVE); INFLUENZA A NAA NEGATIVE (NEGATIVE); INFLUENZA B NAA NEGATIVE (NEGATIVE)
[2022-06-07] MEDS ORDERED: Gadobenate Dimeglumine 529 MG/ML 20 ML SDV IVPUSH STA (15:26)
== END 2022-06-07 17:41 | disposition home or self-care (01) ==
LOC: MW.ED 11:45
DX: R29.810 Facial weakness (principal); E83.42 Hypomagnesemia; G35 Multiple sclerosis; Z88.0 Allergy status to penicillin; Z88.8 Allergy status to other drugs, medicaments and biological substances; Z79.899 Other long term (current) drug therapy; Z90.49 Acquired absence of other specified parts of digestive tract; Z20.822 Contact with and (suspected) exposure to COVID-19
CPT/HCPCS: 0240U; 36415; 70450; 70496; 70498; 70553; 80053; 83735; 85025; 85610; 85730; 93005; 96365; 96366; 96375; 99284; A9577; J3475; J3490; J7030; Q9967

== ENCOUNTER 2025-01-23 09:03 | Emergency (ER) | payer MEDICARE ==
[2025-01-23] MEDS: Acetaminophen/HYDROcodone 325-5 MG Tab PO ONE (10:04)
== END 2025-01-23 10:37 ==
LOC: MW.ED 09:03
DX: S72.142A Displaced intertrochanteric fracture of left femur, initial encounter for closed fracture (principal); Z79.899 Other long term (current) drug therapy; Z88.0 Allergy status to penicillin; Z88.8 Allergy status to other drugs, medicaments and biological substances; Z79.01 Long term (current) use of anticoagulants; Z90.49 Acquired absence of other specified parts of digestive tract; W19.XXXA Unspecified fall, initial encounter
CPT/HCPCS: 99284; A9270; 99283